=== PATIENT | male | born 1955 | race Caucasian/White ===

== ENCOUNTER 2020-09-27 13:44 | Emergency (ER) | payer MEDICARE ==
--- NOTE | 2020-09-27 13:51 | EDM.PDOC ---
ED HPI GENERAL MEDICAL PROBLEM - General Chief Complaint: Cardiovascular Problem Stated Complaint: RAPID HEART RATE Time Seen by Provider: 09/27/20 13:51 Source of Information: Reports: Patient History Limitations: Reports: No Limitations - History of Present Illness INITIAL COMMENTS - FREE TEXT/NARRATIVE: Patient is a 64-year-old male who presents to the ER today complaining of fast heart rate. States last night while working outside doing light work he noticed his heart rate was elevated. He did become slightly short of breath and had some mild chest discomfort. This subsided with rest. He states throughout the course of the evening he noticed on his Fitbit his heart rate was elevated in the 80s which normally would be in the 50s. This morning while [email or web address] he noticed his heart rate was 118 which is abnormal. He had some upper chest discomfort rated 1 out of 10 described as a pressure and with no radiation. He did become slightly short of breath and has some diaphoresis with it. He came to the ED for evaluation. Of note patient states he has had a mild cough that started this past Monday/ described as nonproductive. He denies any upper respiratory symptoms such as sinus congestion, postnasal drip, sore throat, ear pain, or recent exposure to anybody with Covid. He also denies any chest pain or shortness of breath at this time. Denies any fever, hemoptysis, abdominal pain, nausea or vomiting, dark tarry stools, bloody stools, pain or swelling to lower extremities. Patient states he has been having some intermittent dysuria. Is also described as intermittent. Patient has no past medical history. He is currently on no medications. Surgical history none. Patient admits he does not go to the doctor for anything. Allergies include aspirin to which he states his lips start to swell. He denies any smoking history. Alcohol use described as 2 glasses every 3 days of wine. He has not drinking any wine as of last night. Denies any drug use. - Related Data Allergies Allergy/AdvReac Type Severity Reaction Status Date / Time aspirin Allergy Swelling Verified 09/27/20 13:51 Home Meds: Home Meds atenoloL [Atenolol] 25 mg PO QAM #30 tablet 09/27/20 [Rx] ED ROS GENERAL - Review of Systems Review Of Systems: Comprehensive ROS is negative, except as noted in HPI. ED EXAM, GENERAL - Physical Exam Exam: See Below Exam Limited By: No Limitations General Appearance: Alert, WD/WN, No Apparent Distress Eye Exam: Left Eye: Normal Inspection Ears: Normal External Exam, Hearing Grossly Normal Nose: Normal Inspection Throat/Mouth: Normal Inspection, Normal Oropharynx, Normal Voice, No Airway Compromise Head: Atraumatic, Normocephalic Neck: Normal Inspection, Supple, Non-Tender, Full Range of Motion Respiratory/Chest: No Respiratory Distress, Lungs Clear, Normal Breath Sounds, No Accessory Muscle Use, Chest Non-Tender Cardiovascular: Normal Peripheral Pulses, No JVD, No Murmur, No Rub, Tachycardia, Extra Beats Peripheral Pulses: 2+: Radial (L), Radial (R) GI/Abdominal: Normal Bowel Sounds, Soft, Non-Tender, No Organomegaly, No Distention Back Exam: Normal Inspection Extremities: Normal Inspection, Non-Tender, No Pedal Edema Neurological: Alert, Oriented, Normal Cognition, No Motor/Sensory Deficits Psychiatric: Normal Affect, Normal Mood Skin Exam: Warm, Dry, Intact, Normal Color, No Rash #1 Interpretation EKG Date: 09/27/20 Time: 13:55 Rhythm: Other (Sinus Tachycardia, ventricular bigeminy) Rate (Beats/Min): 103 Radford: LAD-Left Radford Deviation P-Wave: Present ST-T: Normal QT: Prolonged Comparison: NA - No Prior EKG #2 Interpretation EKG Date: 09/27/20 Time: 14:12 Rhythm: Other (Sinus tach) Rate (Beats/Min): 107 Radford: LAD-Left Radford Deviation P-Wave: Present QRS: Normal ST-T: Other (Diffuse early repolarization pattern) QT: Prolonged Comparison: Change From Previous EKG Course - Vital Signs Last Recorded V/S: Last Vital Signs Temp 98.7 F 09/27/20 13:47 Pulse 70 09/27/20 17:50 Resp 16 09/27/20 13:47 BP 150/80 H 09/27/20 17:50 Pulse Ox 100 09/27/20 17:50 - Orders/Labs/Meds Labs: Laboratory Tests 09/27/20 09/27/20 09/27/20 Range/Units 13:55 13:55 13:55 WBC 11.52 H (4.23-9.07) K/mm3 RBC 4.96 (4.63-6.08) M/mm3 Hgb 14.9 (13.7-17.5) gm/dl Hct 46.2 (40.1-51.0) % MCV 93.1 H (79.0-92.2) fl MCH 30.0 (25.7-32.2) pg MCHC 32.3 (32.2-35.5) g/dl RDW Std Deviation 43.8 (35.1-43.9) fL Plt Count 245 (163-337) K/mm3 MPV 10.4 (9.4-12.3) fl Neutrophils % (Manual) 65 H (40-60) % Band Neutrophils % 0 (0-10) % Lymphocytes % (Manual) 28 (20-40) % Atypical Lymphs % 0 % Monocytes % (Manual) 6 (2-10) % Eosinophils % (Manual) 0 L (0.8-7.0) % Basophils % (Manual) 1 (0.2-1.2) Platelet Estimate Adequate Plt Morphology Comment Normal RBC Morph Comment Normal APTT 26.5 (21.7-31.4) SECONDS D-Dimer, Quantitative 0.43 (0.19-0.50) mg/L Sodium 138 (136-145) mEq/L Potassium 3.8 (3.5-5.1) mEq/L Chloride 100 (98-107) mEq/L Carbon Dioxide 27 (21-32) mEq/L Anion Gap 14.8 (5-15) BUN 14 (7-18) mg/dL Creatinine 1.1 (0.7-1.3) mg/dL Est Cr Clr Drug Dosing 71.31 mL/min Estimated GFR (MDRD) > 60 (>60) mL/min BUN/Creatinine Ratio 12.7 L (14-18) Glucose 143 H (80-115) mg/dL Calcium 9.5 (8.5-10.1) mg/dL Magnesium (1.8-2.4) mg/dl Ferritin (26-388) ng/ml Total Bilirubin 0.7 (0.2-1.0) mg/dL AST 17 (15-37) U/L ALT 33 (16-63) U/L Alkaline Phosphatase 65 (46-116) U/L Lactate Dehydrogenase 148 (85-227) U/L Troponin I < 0.017 (0.00-0.056) ng/mL C-Reactive Protein 16.8 H* (<1.0) mg/dL NT-Pro-B Natriuret Pep (0-125) pg/mL Total Protein 8.4 H (6.4-8.2) g/dl Albumin 4.3 (3.4-5.0) g/dl Globulin 4.1 gm/dL Albumin/Globulin Ratio 1.1 (1-2) SARS-CoV-2 RNA (HIEN) (NEGATIVE) 09/27/20 09/27/20 09/27/20 Range/Units 13:55 13:55 13:55 WBC (4.23-9.07) K/mm3 RBC (4.63-6.08) M/mm3 Hgb (13.7-17.5) gm/dl Hct (40.1-51.0) % MCV (79.0-92.2) fl MCH (25.7-32.2) pg MCHC (32.2-35.5) g/dl RDW Std Deviation (35.1-43.9) fL Plt Count (163-337) K/mm3 MPV (9.4-12.3) fl Neutrophils % (Manual) (40-60) % Band Neutrophils % (0-10) % Lymphocytes % (Manual) (20-40) % Atypical Lymphs % % Monocytes % (Manual) (2-10) % Eosinophils % (Manual) (0.8-7.0) % Basophils % (Manual) (0.2-1.2) Platelet Estimate Plt Morphology Comment RBC Morph Comment APTT (21.7-31.4) SECONDS D-Dimer, Quantitative (0.19-0.50) mg/L Sodium (136-145) mEq/L Potassium (3.5-5.1) mEq/L Chloride (98-107) mEq/L Carbon Dioxide (21-32) mEq/L Anion Gap (5-15) BUN (7-18) mg/dL Creatinine (0.7-1.3) mg/dL Est Cr Clr Drug Dosing mL/min Estimated GFR (MDRD) (>60) mL/min BUN/Creatinine Ratio (14-18) Glucose (80-115) mg/dL Calcium (8.5-10.1) mg/dL Magnesium 2.2 (1.8-2.4) mg/dl Ferritin 513 H (26-388) ng/ml Total Bilirubin (0.2-1.0) mg/dL AST (15-37) U/L ALT (16-63) U/L Alkaline Phosphatase (46-116) U/L Lactate Dehydrogenase (85-227) U/L Troponin I (0.00-0.056) ng/mL C-Reactive Protein (<1.0) mg/dL NT-Pro-B Natriuret Pep 65 (0-125) pg/mL Total Protein (6.4-8.2) g/dl Albumin (3.4-5.0) g/dl Globulin gm/dL Albumin/Globulin Ratio (1-2) SARS-CoV-2 RNA (HIEN) (NEGATIVE) 09/27/20 09/27/20 Range/Units 14:55 16:09 WBC (4.23-9.07) K/mm3 RBC (4.63-6.08) M/mm3 Hgb (13.7-17.5) gm/dl Hct (40.1-51.0) % MCV (79.0-92.2) fl MCH (25.7-32.2) pg MCHC (32.2-35.5) g/dl RDW Std Deviation (35.1-43.9) fL Plt Count (163-337) K/mm3 MPV (9.4-12.3) fl Neutrophils % (Manual) (40-60) % Band Neutrophils % (0-10) % Lymphocytes % (Manual) (20-40) % Atypical Lymphs % % Monocytes % (Manual) (2-10) % Eosinophils % (Manual) (0.8-7.0) % Basophils % (Manual) (0.2-1.2) Platelet Estimate Plt Morphology Comment RBC Morph Comment APTT (21.7-31.4) SECONDS D-Dimer, Quantitative (0.19-0.50) mg/L Sodium (136-145) mEq/L Potassium (3.5-5.1) mEq/L Chloride (98-107) mEq/L Carbon Dioxide (21-32) mEq/L Anion Gap (5-15) BUN (7-18) mg/dL Creatinine (0.7-1.3) mg/dL Est Cr Clr Drug Dosing mL/min Estimated GFR (MDRD) (>60) mL/min BUN/Creatinine Ratio (14-18) Glucose (80-115) mg/dL Calcium (8.5-10.1) mg/dL Magnesium (1.8-2.4) mg/dl Ferritin (26-388) ng/ml Total Bilirubin (0.2-1.0) mg/dL AST (15-37) U/L ALT (16-63) U/L Alkaline Phosphatase (46-116) U/L Lactate Dehydrogenase (85-227) U/L Troponin I < 0.017 (0.00-0.056) ng/mL C-Reactive Protein (<1.0) mg/dL NT-Pro-B Natriuret Pep (0-125) pg/mL Total Protein (6.4-8.2) g/dl Albumin (3.4-5.0) g/dl Globulin gm/dL Albumin/Globulin Ratio (1-2) SARS-CoV-2 RNA (HIEN) Negative (NEGATIVE) Meds: Medications Discontinued Medications Generic Name Dose Route Start Last Admin Trade Name Freq PRN Reason Stop Dose Admin Sodium Chloride 500 mls @ 999 mls/hr 09/27/20 14:13 09/27/20 14:38 Normal Saline IV 09/27/20 14:43 999 mls/hr .BOLUS ONE Administration Metoprolol Tartrate 5 mg 09/27/20 17:02 09/27/20 17:26 Lopressor IVPUSH 09/27/20 17:03 Not Given ONETIME ONE Metoprolol Tartrate 25 mg 09/27/20 17:11 09/27/20 17:19 Lopressor PO 09/27/20 17:12 25 mg ONETIME ONE Administration Sodium Chloride 10 ml 09/27/20 14:12 09/27/20 14:39 Saline Flush FLUSH 10 ml ASDIRECTED PRN Administration Keep Vein Open - Re-Assessments/Exams Free Text/Narrative Re-Assessment/Exam: EKG on admission impression: Sinus tachycardia at rate of 103 with bigeminal PVCs. Left axis deviation with borderline prolonged QT interval. [place] interval is 156. QTc is 486. Initial vital signs patient was found to be hypertensive 184/111 with heart rate of 103. The PVCs are perfusing. Patient has no history of hypertension but notes his blood pressure does run high. He is feeling well anxious with being in the ED. He has no chest discomfort or shortness of breath. He was placed on nasal cannula 2 L/min see if this would improve his rhythm. During our evaluation his rhythm actually went into a normal sinus tach with no PVCs. V will be established with normal saline 500 mill bolus. Initial labs and studies will include: CBC, CHEM 14, CRP, troponin, coag studies, D-dimer, ferritin, LDH, and Covid test. Chest x-ray will be also obtained. Second EEG will be obtained with rhythm change. Second EKG reveals sinus tachycardia rate of 107 with LVH. Use early repol arization pattern. Left axis deviation with mildly prolonged QTC. No acute ST changes noted. 1505 Dr. Lizarraga has reviewed CXR with me. No acute intrathoracic findings noted. Final interpretation is pending. 09/27/20 15:14 vital signs: Blood pressure 152/92, heart rate 82, O2 sats 99% on room air, heart rate 81, on telemetry sinus rhythm with no PVCs. 09/27/20 15:18 Reassessment, patient sitting up in bed. He offers no complaints. Patient was on O2 via NC 2 lpm with O2 Sats 99%. Shut the O2 off and will see what rhythm and O2 sats due. 09/27/20 15:35 Labs reviewed: White blood count 11.52, hemoglobin 14.9, platelet count 245, D-dimer 0.43, sodium 138, potassium 3.8, AG of 14.8, creatinine 1.1, glucose 143, ferritin is elevated at 513, LFTs are normal, LDH 148, troponin less than 0.017, CRP is elevated 16.8, pro BNP is 65. Bblood pressure 148/90, heart rate 84, SPO2 94% on room air telemetry sinus rhythm. Awaiting results of covid test. We will get the patient up to ambulate once results are present to see if his heart rate increases causing him to go into bigeminal PVCs. Second troponin will be ran in 2 hours. In addition may place the patient on a low-dose of a beta-conner upon discharge. 09/27/20 16:39 Covid negative. 1654 2nd Troponin no change. Patient was shared results of second troponin. Patient resting comfortably in bed with no complaints. Heart rate remained 93 with no PVCs. With standing patient's heart p.o. here. Did not change. He did have 2 PVCs on the monitor every once in a while. There were unifocal. Patient did ambulate with no difficulties. He denied any chest pain, dizziness, palpitations, or shortness of breath. Discussed patient with Dr. Lizarraga. Suggest patient gets Lopressor 5 mg while in the ED. Start the patient on atenolol 25 mg once a day in the morning. IV was pulled prior to discussing this with nursing staff. We will start him on 25 mg of metoprolol tartrate in the E.D. and atenolo 25mg PO tomorrow morning. Patient will followup with PCP and cardiologists of his choosing once he returns home. Asked the patient to refrain from any caffeine use. In error MG was not ordered. This has been ordered. patient will not be discharged until results are present. 09/27/20 17:37 magnesium 2.2 Patient was not able to provide a urine sample. He has no pain at this time. Will followup with PCP if persists. Departure - Departure Time of Disposition: 17:06 Disposition: Home, Self-Care 01 Condition: Good Clinical Impression: Frequent PVCs, Atypical chest pain, Palpitations Hypertension Qualifiers: Hypertension type: unspecified Qualified Code(s): I10 - Essential (primary) hypertension Prescriptions: atenoloL [Atenolol] 25 mg PO QAM #30 tablet Instructions: Premature Ventricular Contraction, Nonspecific Chest Pain, Adult, Hypertension, Adult, [id number] Referrals: PCP,Not In Area [Primary Care Provider] - Forms: ED Department Discharge Additional Instructions: You received 25 mg of metoprolol short acting beta-conner this evening. Start taking the long-acting metoprolol tomorrow morning 25 mg once a day. Push the fluids. Refrain from caffeine use. If you should develop any new or worsening symptoms as discussed please return back to the ED. Suggest upon returning home establishing medical care with a primary care provider and see a brass cutter.
[2020-09-27] MEDS ORDERED: Sodium Chloride 0.9% 10 ML Syringe FLUSH PRN (14:12)
[2020-09-27] MEDS ORDERED: Sodium Chloride 0.9% 500 ML IV ONE (14:13)
[2020-09-27] MEDS ORDERED: Metoprolol Tartrate 5 MG/5 ML SDV IVPUSH ONE (17:02)
[2020-09-27] MEDS ORDERED: Metoprolol Tartrate 25 MG Tab PO ONE (17:11)
--- NOTE | 2020-09-28 08:07 | CR ---
Chest: Portable view of the chest was obtained. Comparison: No prior chest imaging is available. Heart size and mediastinum: Heart size and mediastinum are within normal limits. Lungs are clear with no acute parenchymal change. No pleural thickening is seen. Osseous: No acute osseous finding is seen. Impression: 1. Nothing acute is identified on portable chest x-ray. Diagnostic code #1
== END 2020-09-27 17:51 | disposition home or self-care (01) ==
LOC: JD.ED 13:44
DX: I49.3 Ventricular premature depolarization (principal); Z20.828 Contact with and (suspected) exposure to other viral communicable diseases; R30.0 Dysuria; Z88.8 Allergy status to other drugs, medicaments and biological substances
CPT/HCPCS: 36415; 71045; 80053; 82728; 83615; 83735; 83880; 84484; 85007; 85027; 85379; 85730; 86140; 93005; 99285; A9270; J7030; U0002; 93010; 99284